=== PATIENT | female | born 1960 | race American Indian/Alaskan Native ===

== ENCOUNTER 2020-04-22 02:10 | Inpatient (IN) | payer OTHER ==
[2020-04-22] MEDS ORDERED: ASPIRIN 325 MG TAB PO ONE (02:33)
[2020-04-22] MEDS ORDERED: dilTIAZem 25 MG/5 ML INJ ONE (03:02)
--- NOTE | 2020-04-22 03:04 | XRay Report ---
CHEST 1 VIEW INDICATION: Chest Pain. COMPARISON: None. FINDINGS: Support devices: None. Heart: Normal. Lungs/Pleura: No acute pulmonary or pleural findings. IMPRESSION: 1. No acute findings. Signer Name: Jassi Ornelas MD Signed: 04/22/2020 3:00 AM Workstation Name: [id number]
[2020-04-22] MEDS ORDERED: SODIUM CHLORIDE 0.9% 1000 ML 1,000 ML IV ONE (03:06)
[2020-04-22] MEDS ORDERED: dilTIAZem 25 MG/5 ML INJ IV ONE (03:06)
--- NOTE | 2020-04-22 03:10 | Emergency Department Report ---
ED Palpitations HPI - General Chief Complaint: Arrhythmia/Palpitations Stated Complaint: RAPID HEART BEAT Time Seen by Provider: 04/22/20 03:05 Source: patient Mode of arrival: Ambulatory Limitations: No Limitations - History of Present Illness Initial Comments: Patient is a 59-year-old female that presents emergency room with complaints of palpitations and rapid heartbeat. Patient states that the symptoms woke her up at 145. Patient denies chest pain or shortness of breath. Patient states his symptoms are worsening. Patient states that he feels like her heart is bouncing around. Patient has a history of a flutter. Patient denies past medical history of diabetes or CHF. Patient states she took an extra dose of Coreg just prior to coming to the hospital. Patient states she did not get any relief from the Coreg. Patient states she has been working outside for the past 2 days. Patient denies recent travel. Patient denies recent international travel. Patient denies exposure to the novel coronavirus. Patient denies sick contacts. Patient denies fever and chills. Patient denies cough. Patient denies diarrhea. Patient denies coming in contact with anybody with symptoms of the novel coronavirus. Patient's EKG read at 0218 and I have requested that the patient be immediately brought back from triage due to the finding of A. fib and tachycardia. MD Complaint: rapid heart beat, "heart racing", palpitations -: Sudden Context: occured during rest Arrythmia History: other Associated Symptoms: denies: chest pain, shortness of breath, syncope, near- syncope, nausea/vomiting, anxiety, diaphoresis, cough, parasthesias, feeling of impending doom, muscle cramps - Related Data Allergies Allergy/AdvReac Type Severity Reaction Status Date / Time ibuprofen Allergy Hives Verified 04/22/20 02:33 levofloxacin [From Levaquin] Allergy Itching Verified 04/22/20 02:33 Penicillins Allergy Hives Verified 04/22/20 02:32 Sulfa (Sulfonamide Allergy Rash Verified 04/22/20 02:32 Antibiotics) ED Review of Systems ROS: Stated complaint: RAPID HEART BEAT Other details as noted in HPI Constitutional: denies: chills, fever Eyes: denies: eye pain, eye discharge, vision change ENT: denies: ear pain, throat pain Respiratory: denies: cough, shortness of breath, wheezing Cardiovascular: palpitations. denies: chest pain Endocrine: no symptoms reported Gastrointestinal: denies: abdominal pain, nausea, diarrhea Genitourinary: denies: urgency, dysuria, discharge Musculoskeletal: denies: back pain, joint swelling, arthralgia Skin: denies: rash, lesions Neurological: denies: headache, weakness, paresthesias Psychiatric: denies: anxiety, depression Hematological/Lymphatic: denies: easy bleeding, easy bruising ED Past Medical Hx - Past Medical History Previous Medical History?: Yes Hx GERD: Yes Additional medical history: A-flutter - Surgical History Past Surgical History?: Yes Additional Surgical History: Breast Biopsies. Hysterectomy - Family History Family history: no significant - Social History Smoking Status: Never Smoker Substance Use Type: None ED Physical Exam - General Limitations: No Limitations General appearance: alert, in no apparent distress - Head Head exam: Present: atraumatic, normocephalic - Eye Eye exam: Present: normal appearance - ENT ENT exam: Present: mucous membranes moist - Neck Neck exam: Present: normal inspection - Respiratory Respiratory exam: Present: normal lung sounds bilaterally. Absent: respiratory distress, wheezes, rales - Cardiovascular Cardiovascular Exam: Present: regular rate, normal rhythm, tachycardia, irregular rhythm. Absent: systolic murmur, diastolic murmur, rubs, gallop - GI/Abdominal GI/Abdominal exam: Present: soft, normal bowel sounds. Absent: distended, tenderness, guarding, rebound - Extremities Exam Extremities exam: Present: normal inspection - Back Exam Back exam: Present: normal inspection - Neurological Exam Neurological exam: Present: alert, oriented X3 - Psychiatric Psychiatric exam: Present: normal affect, normal mood - Skin Skin exam: Present: warm, dry, intact, normal color. Absent: rash ED Course Vital Signs 04/22/20 04/22/20 04/22/20 02:22 03:06 03:15 Temperature 98.1 F Pulse Rate 71 134 H 72 Respiratory 16 16 14 Rate Blood Pressure 132/79 115/73 O2 Sat by Pulse 98 99 97 Oximetry 04/22/20 04/22/20 04/22/20 03:20 03:22 03:30 Temperature Pulse Rate 88 136 H 71 Respiratory 14 Rate Blood Pressure 121/79 O2 Sat by Pulse 97 Oximetry 04/22/20 04/22/20 04/22/20 03:45 04:03 04:15 Temperature Pulse Rate 74 65 Respiratory 16 16 16 Rate Blood Pressure 121/82 121/82 90/59 O2 Sat by Pulse 99 98 Oximetry 04/22/20 04:30 Temperature Pulse Rate Respiratory 17 Rate Blood Pressure 118/78 O2 Sat by Pulse 97 Oximetry - Reevaluation(s) Reevaluation #1: Initial evaluation done. Patient found to have A. fib RVR on engine monitor. Heart rate on the engine monitor is 128-140. Patient will be given Cardizem and placed on a Cardizem drip. Patient also will be given fluids. Patient's labs have been drawn. Patient's labs are pending. 04/22/20 03:08 Reevaluation #2: Patient given Cardizem push and the patient converted back to a flutter. Patient states she is always in atrial flutter. Patient states her symptoms have resolved. Patient was placed on a Cardizem drip. 04/22/20 03:14 Reevaluation #3: Patient has fluid on. Patient on Cardizem drip. Patient states she is feeling better. Patient states she still having occasional palpitation 04/22/20 03:25 Reevaluation #4: I discussed all results with patient. I discussed plan of care with patient. Patient agrees with plan of care and admission. Patient to be admitted to the hospitalist service. 04/22/20 04:06 - Consultations Consultation #1: Hospitalist consulted for admission. Hospitalist to admit patient. 04/22/20 05:59 ED Medical Decision Making - Lab Data Result diagrams: 04/22/20 02:54 04/22/20 02:54 - EKG Data -: EKG Interpreted by Me EKG shows normal: axis, intervals, QRS complexes, ST-T waves Rate: tachycardia - EKG Data Interpretation: other (A. fib RVR) - Radiology Data Radiology results: report reviewed, image reviewed interpreted by me: Chest x-ray: No pneumonia, no pneumothorax, no foreign body, no osseous findings, no acute findings CHEST 1 VIEW INDICATION: Chest Pain. COMPARISON: None. FINDINGS: Support devices: None. Heart: Normal. Lungs/Pleura: No acute pulmonary or pleural findings. IMPRESSION: 1. No acute findings. - Medical Decision Making Patient is a 59-year-old female that presents to the ER for hypertension. Patient symptoms started 1:45 AM. The symptoms awoke the patient. Patient denies chest pain shortness of breath. Patient brought directly to the treatment room from triage after I read the EKG. Patient placed on engine monitor and found to have A. fib RVR. Patient's heart rate was 1 29-1 40. Patient given Cardizem and patient converted to atrial flutter. Patient then placed on a Cardizem drip and patient converted to sinus rhythm. Patient's rate was controlled. Patient labs which were essentially unremarkable. Patient admitted to the hospitalist service for further evaluation treatment. Patient admitted into the ICU. - Differential Diagnosis A. fib, tachycardia, RVR, electrolyte imbalance, dehydration. Critical Care Time: Yes Critical care time in (mins) excluding proc time.: 35 Critical care attestation.: If time is entered above; I have spent that time in minutes in the direct care of this critically ill patient, excluding procedure time. Critical Care Time: 35 minutes ED Disposition Clinical Impression: Atrial fibrillation with RVR, Heart palpitations Disposition: 09 OP ADMIT IP TO THIS HOSP Is pt being admited?: Yes Does the pt Need Aspirin: No Condition: Critical Time of Disposition: 05:54
[2020-04-22 03:17] LABS: Basophils # (Auto) 0.1 K/mm3 (0.0-0.1); Basophils % (Auto) 1.1 % (0.0-1.8); Eosinophils # (Auto) 0.2 K/mm3 (0.0-0.4); Eosinophils % (Auto) 2.9 % (0.0-4.3); Hemoglobin 13.8 gm/dl (10.1-14.3); Lymphocytes # (Auto) 2.7 K/mm3 (1.2-5.4); Lymphocytes % (Auto) 41.7 % (13.4-35.0); Mean Corpuscular HGB Conc 34 % (30-34); Mean Corpuscular Volume 85 fl (79-97); Monocytes # (Auto) 0.6 K/mm3 (0.0-0.8); Monocytes % (Auto) 9.3 % (0.0-7.3); Platelet Count 242 K/mm3 (140-440); Red Blood Count 4.81 M/mm3 (3.65-5.03); Red Cell Distribution Width 13.4 % (13.2-15.2)
[2020-04-22 03:34] LABS: Blood Urea Nitrogen 21 mg/dL (7-17); Calcium 9.4 mg/dL (8.4-10.2); Hemolysis Index 3
[2020-04-22 03:35] LABS: BUN/Creatinine Ratio 30
[2020-04-22] MEDS ORDERED: dilTIAZem/D5W 100 MG/100 ML BAG IV SCH ×2 (04:00→19:00)
--- NOTE | 2020-04-22 09:37 | History and Physical Report ---
History of Present Illness Date of examination: 04/22/20 Date of admission: 04/22/20 06:09 Chief complaint: tachycardia History of present illness: Patient is a 59-year-old female that presents emergency room with complaints of palpitations and rapid heartbeat. Patient states that the symptoms awakened her from sleep at 145a. Patient denies chest pain or shortness of breath. Patient states her symptoms are worsened aprompted her visit to the ER. Patient has a history of a flutter. Patient states she took an extra dose of Coreg just prior to coming to the hospital but no relief of the palpitations. Patient states she has been working outside for the past 2 days. Patient denies recent travel. Patient denies recent international travel. Patient denies exposure to the novel coronavirus. Patient denies sick contacts. Patient denies fever and chills. Patient denies cough. Patient denies diarrhea. Patient denies coming in contact with anybody with symptoms of the novel coronavirus. In the ER, Patient's EKG revealed A. fib/tachycardia. Past History Past Medical History: other (aflutter) Past Surgical History: No surgical history Social history: no significant social history Family history: no significant family history Medications and Allergies Allergies Allergy/AdvReac Type Severity Reaction Status Date / Time ibuprofen Allergy Hives Verified 04/22/20 02:33 levofloxacin [From Levaquin] Allergy Itching Verified 04/22/20 02:33 Penicillins Allergy Hives Verified 04/22/20 02:32 Sulfa (Sulfonamide Allergy Rash Verified 04/22/20 02:32 Antibiotics) Active Meds: Active Medications Diltiazem HCl (Cardizem/D5w 100mg/100ml) 100 mg in 100 mls @ 5 mls/hr IV TITR JAY JAY; Protocol Last Admin: 04/22/20 03:20 Dose: 5 mg/hr, 5 mls/hr Documented by: Review of Systems All systems: negative Exam - Constitutional Vitals: Temp Pulse Resp BP Pulse Ox 98.1 F 67 23 125/76 99 04/22/20 02:22 04/22/20 08:15 04/22/20 08:15 04/22/20 08:15 04/22/20 08:15 General appearance: Present: no acute distress, well-nourished - EENT Eyes: Present: PERRL ENT: hearing intact, clear oral mucosa - Neck Neck: Present: supple, normal ROM - Respiratory Respiratory effort: normal Respiratory: bilateral: CTA - Cardiovascular Heart Sounds: Present: S1 & S2. Absent: rub, click - Extremities Extremities: pulses symmetrical, No edema Peripheral Pulses: within normal limits - Abdominal General gastrointestinal: Present: soft, non-tender, non-distended, normal bowel sounds Female genitourinary: Present: normal - Integumentary Integumentary: Present: clear, warm, dry - Musculoskeletal Musculoskeletal: gait normal, strength equal bilaterally - Psychiatric Psychiatric: appropriate mood/affect, intact judgment & insight - Neurologic Neurologic: CNII-XII intact, moves all extremities HEART Score - HEART Score Troponin: Troponin T < 0.010 ng/mL (0.00-0.029) 04/22/20 08:13 Results - Labs CBC & Chem 7: 04/22/20 02:54 04/22/20 02:54 Labs: Laboratory Last Values WBC 6.4 K/mm3 (4.5-11.0) 04/22/20 02:54 RBC 4.81 M/mm3 (3.65-5.03) 04/22/20 02:54 Hgb 13.8 gm/dl (10.1-14.3) 04/22/20 02:54 Hct 41.0 % (30.3-42.9) 04/22/20 02:54 MCV 85 fl (79-97) 04/22/20 02:54 MCH 29 pg (28-32) 04/22/20 02:54 MCHC 34 % (30-34) 04/22/20 02:54 RDW 13.4 % (13.2-15.2) 04/22/20 02:54 Plt Count 242 K/mm3 (140-440) 04/22/20 02:54 Lymph % (Auto) 41.7 % (13.4-35.0) H 04/22/20 02:54 [place] % (Auto) 9.3 % (0.0-7.3) H 04/22/20 02:54 Eos % (Auto) 2.9 % (0.0-4.3) 04/22/20 02:54 Baso % (Auto) 1.1 % (0.0-1.8) 04/22/20 02:54 Lymph # (Auto) 2.7 K/mm3 (1.2-5.4) 04/22/20 02:54 [place] # (Auto) 0.6 K/mm3 (0.0-0.8) 04/22/20 02:54 Eos # (Auto) 0.2 K/mm3 (0.0-0.4) 04/22/20 02:54 Baso # (Auto) 0.1 K/mm3 (0.0-0.1) 04/22/20 02:54 Seg Neutrophils % 45.0 % (40.0-70.0) 04/22/20 02:54 Seg Neutrophils # 2.9 K/mm3 (1.8-7.7) 04/22/20 02:54 Sodium 141 mmol/L (137-145) 04/22/20 02:54 Potassium 3.8 mmol/L (3.6-5.0) 04/22/20 02:54 Chloride 102.2 mmol/L (98-107) 04/22/20 02:54 Carbon Dioxide 25 mmol/L (22-30) 04/22/20 02:54 Anion Gap 18 mmol/L 04/22/20 02:54 BUN 21 mg/dL (7-17) H 04/22/20 02:54 Creatinine 0.7 mg/dL (0.6-1.2) 04/22/20 02:54 Estimated GFR > 60 ml/min 04/22/20 02:54 BUN/Creatinine Ratio 30 % 04/22/20 02:54 Glucose 106 mg/dL (65-100) H 04/22/20 02:54 Calcium 9.4 mg/dL (8.4-10.2) 04/22/20 02:54 Troponin T < 0.010 ng/mL (0.00-0.029) 04/22/20 08:13 TSH 2.230 mlU/mL (0.270-4.200) 04/22/20 05:15 Peters/IV: IV Catheter Type [Left Forearm Peripheral IV ] Assessment and Plan Assessment and plan: Afib with RVR. Cont. Cardizem drip. Cardiology consult. TSH nl. Serial EKG. F/U D-dimer. Consider CTA
[2020-04-22] MEDS ORDERED: ENOXAPARIN 40 MG/0.4 ML INJ SUB-Q ONE (11:56)
[2020-04-22] MEDS: ENOXAPARIN 40 MG/0.4 ML INJ SUB-Q SCH (11:59)
--- NOTE | 2020-04-22 13:32 | Consultation ---
History of Present Illness Consult date: 04/22/20 Requesting physician: BUFFY DE LA CRUZ Consult reason: atrial fibrillation History of present illness: The patient is a 59-year-old female with a past medical history of paroxysmal atrial flutter. She reports she is regularly followed by a health assessment and treatment teacher in [place], [place]. She presented with c/o palpitations which awoke her from sleep today around 1:45AM. Her home medication regimen includes ASA 81 and Coreg 3.125mg BID. At the onset of her palpitations, she took an additional Coreg but did not experience any relief and thus she decided to seek medical attention. Pt denies any chest pain, SOB, n/v, diaphoresis, dizziness or syncope. She reports that her mother has been sick for about 2 weeks and she has been under increased amount of stress due to taking care of her mother. Admission ECG shows atrial fibrillation with HR 120. She was given IV cardizem and placed on cardizem gtt and has since converted to NSR. She denies any current complaints on evaluation. Pt reports that she underwent stress testing with her primary health assessment and treatment teacher in December 2019 and this test was normal to her knowledge. No other significant past medical history. Past History Past Medical History: other (aflutter) Past Surgical History: No surgical history Social history: no significant social history. denies: smoking, alcohol abuse, prescription drug abuse Family history: no significant family history Medications and Allergies Allergies Allergy/AdvReac Type Severity Reaction Status Date / Time ibuprofen Allergy Hives Verified 04/22/20 02:33 levofloxacin [From Levaquin] Allergy Itching Verified 04/22/20 02:33 Penicillins Allergy Hives Verified 04/22/20 02:32 Sulfa (Sulfonamide Allergy Rash Verified 04/22/20 02:32 Antibiotics) Active Meds: Active Medications Enoxaparin Sodium (Enoxaparin) 40 mg SUB-Q QDAY [facility] Last Admin: 04/22/20 11:59 Dose: 40 mg Documented by: Diltiazem HCl (Cardizem/D5w 100mg/100ml) 100 mg in 100 mls @ 5 mls/hr IV TITR JAY JAY; Protocol Last Admin: 04/22/20 03:20 Dose: 5 mg/hr, 5 mls/hr Documented by: Sodium Chloride (Sodium Chloride Flush Syringe 10 Ml) 10 ml IV BID JAY JAY Last Admin: 04/22/20 11:40 Dose: 10 ml Documented by: Sodium Chloride (Sodium Chloride Flush Syringe 10 Ml) 10 ml IV PRN PRN PRN Reason: LINE FLUSH Review of Systems Constitutional: no weight loss, no weight gain, no fever, no chills, no sweats Ears, nose, mouth and throat: no ear pain, no nose pain, no sinus pressure, no sinus pain Cardiovascular: palpitations, rapid/irregular heart beat, no chest pain, no orthopnea, no edema, no syncope, no lightheadedness, no shortness of breath, no dyspnea on exertion, no high blood pressure, no leg edema, no decreased exercise tolerance Respiratory: no cough, no shortness of breath, no dyspnea on exertion, no congestion, no wheezing, no pain on inspiration Gastrointestinal: no abdominal pain, no nausea, no vomiting, no diarrhea, no constipation, no change in bowel habits Genitourinary Female: no pelvic pain, no flank pain, no dysuria, no urinary frequency, no urgency Musculoskeletal: no neck stiffness, no neck pain, no shooting arm pain, no arm numbness/tingling, no low back pain, no shooting leg pain Integumentary: no rash, no pruritis, no redness, no sores, no wounds Neurological: no head injury, no paralysis, no weakness, no parathesias, no numbness, no tingling, no seizures, no syncope Psychiatric: no anxiety Endocrine: no cold intolerance, no heat intolerance Hematologic/Lymphatic: no easy bruising, no easy bleeding Allergic/Immunologic: no urticaria Physical Examination Vital Signs Temp Pulse Resp BP Pulse Ox 98.1 F 71 16 132/79 98 04/22/20 02:22 04/22/20 02:22 04/22/20 02:22 04/22/20 02:22 04/22/20 02:22 General appearance: no acute distress HEENT: Positive: PERRL, Normocephaly, Mucus Membranes Moist Neck: Positive: neck supple, trachea midline Cardiac: Positive: Reg Rate and Rhythm, S1/S2 Lungs: Positive: Decreased Breath Sounds Neuro: Positive: Grossly Intact Abdomen: Negative: Tender Skin: Negative: Rash Musculoskeletal: No Pain Extremities: Absent: edema Results 04/22/20 02:54 04/22/20 02:54 CBC 04/22/20 Range/Units 02:54 WBC 6.4 (4.5-11.0) K/mm3 RBC 4.81 (3.65-5.03) M/mm3 Hgb 13.8 (10.1-14.3) gm/dl Hct 41.0 (30.3-42.9) % Plt Count 242 (140-440) K/mm3 Lymph # (Auto) 2.7 (1.2-5.4) K/mm3 [place] # (Auto) 0.6 (0.0-0.8) K/mm3 Eos # (Auto) 0.2 (0.0-0.4) K/mm3 Baso # (Auto) 0.1 (0.0-0.1) K/mm3 Comprehensive Metabolic Panel 04/22/20 Range/Units 02:54 Sodium 141 (137-145) mmol/L Potassium 3.8 (3.6-5.0) mmol/L Chloride 102.2 (98-107) mmol/L Carbon Dioxide 25 (22-30) mmol/L BUN 21 H (7-17) mg/dL Creatinine 0.7 (0.6-1.2) mg/dL Glucose 106 H (65-100) mg/dL Calcium 9.4 (8.4-10.2) mg/dL - Imaging and Cardiology Echo: pending EKG: report reviewed, image reviewed EKG interpretations - Telemetry EKG Rhythm: Sinus Rhythm - EKG Supraventricular dysrhythmia: atrial fibrillation Assessment and Plan Optimize HR control - convert home Coreg to lopressor. Obtain echo. Pt with current CHADS2 VASC score of 1 (female) and thus no indication for initiation of systemic AC at this time - cont home ASA 81mg daily. Cont to monitor on telemetry overnight, if no acute events overnight anticipate d/c in AM. Will follow. The patient has been seen in conjunction with Dr. Ezra Morel who agrees with the assessment and plan of care. - Patient Problems (1) Atrial fibrillation with RVR Current Visit: Yes Status: Acute Plan to address problem: parox AFib and AFlutter --> NSR
[2020-04-22] MEDS ORDERED: ACETAMINOPHEN 325 MG TAB ONE ×2 (14:39→16:16)
[2020-04-22] MEDS ORDERED: ACETAMINOPHEN 325 MG TAB PO ONE (16:22)
[2020-04-22] MEDS ORDERED: MORPHINE 2 MG/1 ML INJ IV ONE (23:36)
[2020-04-22] MEDS: METOPROLOL TARTRATE 25 MG TAB PO SCH (23:37)
[2020-04-22] MEDS ORDERED: MORPHINE 2 MG/1 ML INJ ONE (23:44)
[2020-04-23 06:51] LABS: Hematocrit 39.7 % (30.3-42.9); Hemoglobin 13.1 gm/dl (10.1-14.3); Mean Corpuscular HGB Conc 33 % (30-34); Mean Corpuscular Volume 85 fl (79-97); Platelet Count 225 K/mm3 (140-440); Red Blood Count 4.67 M/mm3 (3.65-5.03); Red Cell Distribution Width 13.6 % (13.2-15.2)
[2020-04-23 07:00] LABS: BUN/Creatinine Ratio 25; Blood Urea Nitrogen 15 mg/dL (7-17); Calcium 8.8 mg/dL (8.4-10.2); Hemolysis Index 12
--- NOTE | 2020-04-23 09:46 | Progress Note ---
Assessment and Plan Assessment and plan: Afib with RVR. Continue Cardizem drip per cardiology recommendations. Obtain echocardiogram results. Pt with current CHADS2 VASC score of 1 (female) and thus no indication for initiation of systemic AC at this time - cont home ASA 81mg daily. Anticipate discharge later today or in a.m. History Interval history: No new issues overnight. Patient denies any chest pain or shortness of breath. Hospitalist Physical - Constitutional Vitals: Temp Pulse Resp BP Pulse Ox 97.7 F 58 L 17 98/60 98 04/23/20 03:56 04/23/20 03:56 04/23/20 03:56 04/23/20 03:56 04/23/20 03:56 General appearance: Present: no acute distress - EENT Eyes: Present: PERRL, EOM intact ENT: hearing intact, clear oral mucosa, dentition normal - Neck Neck: Present: supple, normal ROM - Respiratory Respiratory effort: normal Respiratory: bilateral: CTA - Cardiovascular Rhythm: regular Heart Sounds: Present: S1 & S2. Absent: gallop, rub - Extremities Extremities: no ischemia, No edema, Full ROM - Abdominal General gastrointestinal: soft, non-tender, non-distended, normal bowel sounds - Integumentary Integumentary: Present: clear, warm, dry - Neurologic Neurologic: CNII-XII intact, moves all extremities HEART Score - HEART Score Troponin: Troponin T < 0.010 ng/mL (0.00-0.029) 04/22/20 08:13 Results - Labs CBC & Chem 7: 04/23/20 06:20 04/23/20 06:20 Labs: Laboratory Last Values WBC 4.7 K/mm3 (4.5-11.0) 04/23/20 06:20 RBC 4.67 M/mm3 (3.65-5.03) 04/23/20 06:20 Hgb 13.1 gm/dl (10.1-14.3) 04/23/20 06:20 Hct 39.7 % (30.3-42.9) 04/23/20 06:20 MCV 85 fl (79-97) 04/23/20 06:20 MCH 28 pg (28-32) 04/23/20 06:20 MCHC 33 % (30-34) 04/23/20 06:20 RDW 13.6 % (13.2-15.2) 04/23/20 06:20 Plt Count 225 K/mm3 (140-440) 04/23/20 06:20 Lymph % (Auto) 41.7 % (13.4-35.0) H 04/22/20 02:54 [place] % (Auto) 9.3 % (0.0-7.3) H 04/22/20 02:54 Eos % (Auto) 2.9 % (0.0-4.3) 04/22/20 02:54 Baso % (Auto) 1.1 % (0.0-1.8) 04/22/20 02:54 Lymph # (Auto) 2.7 K/mm3 (1.2-5.4) 04/22/20 02:54 [place] # (Auto) 0.6 K/mm3 (0.0-0.8) 04/22/20 02:54 Eos # (Auto) 0.2 K/mm3 (0.0-0.4) 04/22/20 02:54 Baso # (Auto) 0.1 K/mm3 (0.0-0.1) 04/22/20 02:54 Seg Neutrophils % Resaw Operator 04/23/20 06:20 Seg Neutrophils # 2.9 K/mm3 (1.8-7.7) 04/22/20 02:54 D-Dimer < 135.00 ng/mlDDU (0-234) 04/22/20 10:01 Sodium 142 mmol/L (137-145) 04/23/20 06:20 Potassium 3.9 mmol/L (3.6-5.0) 04/23/20 06:20 Chloride 102.4 mmol/L (98-107) 04/23/20 06:20 Carbon Dioxide 29 mmol/L (22-30) 04/23/20 06:20 Anion Gap 15 mmol/L 04/23/20 06:20 BUN 15 mg/dL (7-17) 04/23/20 06:20 Creatinine 0.6 mg/dL (0.6-1.2) 04/23/20 06:20 Estimated GFR > 60 ml/min 04/23/20 06:20 BUN/Creatinine Ratio 25 % 04/23/20 06:20 Glucose 99 mg/dL (65-100) 04/23/20 06:20 Calcium 8.8 mg/dL (8.4-10.2) 04/23/20 06:20 Troponin T < 0.010 ng/mL (0.00-0.029) 04/22/20 08:13 TSH 2.230 mlU/mL (0.270-4.200) 04/22/20 05:15 Peters/IV: Voiding Method Toilet IV Catheter Type [Left Forearm Peripheral IV ] Active Medications - Current Medications Current Medications: Generic Name Dose Route Start Last Admin Trade Name Freq PRN Reason Stop Dose Admin Aspirin 81 mg 04/23/20 10:00 Baby Aspirin PO QDAY [facility] Enoxaparin Sodium 40 mg 04/22/20 10:00 04/22/20 11:59 Enoxaparin SUB-Q 40 mg QDAY JAY JAY Administration Diltiazem HCl 100 mg in 100 mls @ 5 mls/hr 04/22/20 19:00 04/22/20 21:00 Cardizem/D5w 100mg/100ml IV 5 mg/hr TITR JAY JAY 5 mls/hr Administration Protocol 5 MG/HR Metoprolol Tartrate 25 mg 04/22/20 22:00 04/22/20 23:37 Metoprolol PO Not Given BID [facility] Pneumococcal Polyvalent Vaccine 0.5 ml 04/23/20 12:00 Pneumovax 23 IM 04/23/20 12:01 .ONCE ONE Sodium Chloride 10 ml 04/22/20 10:00 04/22/20 23:28 Sodium Chloride Flush Syringe 10 Ml IV 10 ml BID JAY JAY Administration Sodium Chloride 10 ml 04/22/20 09:57 Sodium Chloride Flush Syringe 10 Ml IV PRN PRN LINE FLUSH
[2020-04-23 10:23] LABS: Basophils % (Manual) 0 % (0.0-1.8); Total Cells Counted 100
[2020-04-23 10:24] LABS: Platelet Estimate Consistent w Auto; RBC Morphology Normal
[2020-04-23] MEDS: ASPIRIN 81 MG TAB CHEW PO SCH (11:28)
[2020-04-23] MEDS: METOPROLOL TARTRATE 25 MG TAB PO SCH ×2 (11:28→21:22)
[2020-04-23] MEDS: ENOXAPARIN 40 MG/0.4 ML INJ SUB-Q SCH (11:28)
[2020-04-23] MEDS ORDERED: ACETAMINOPHEN 325 MG TAB PO PRN (11:36)
[2020-04-23] MEDS ORDERED: PNEUMOCOCCAL 23 Valent 0.5 ML VIAL IM ONE (12:00)
[2020-04-23] MEDS: CETIRIZINE 10 MG TAB PO SCH (12:50)
--- NOTE | 2020-04-23 15:47 | Progress Note ---
Assessment and Plan Echo pending. May obtain as an outpatient. No indications for OAC at this time. Cont present cardiac mgmt. Currently stable cardiac status. Pt may be discharged from a Cardiology perspective. Plan for outpatient echo. Recommend follow-up with Primary Client Relations Associate within 1-2 weeks ([phone]). Pt seen in conjunction with Dr. Edmonds, who agrees with the assessment and plan of care. - Patient Problems (1) Atrial fibrillation with RVR Current Visit: Yes Status: Acute Plan to address problem: PAF/Flutter -> NSR Subjective Date of service: 04/23/20 Principal diagnosis: AF/Flutter Interval history: Pt resting comfortably in bed upon exam. She denies any palpitations overnight or this AM. No additional cardiac complaints. Tele reviewed - SR w/no further episodes of AF/Flutter. Objective Last Vital Signs Temp 98.8 F 04/23/20 12:33 Pulse 64 04/23/20 12:33 Resp 16 04/23/20 12:33 BP 103/60 04/23/20 12:33 Pulse Ox 96 04/23/20 12:33 - Physical Examination General: No Apparent Distress HEENT: Positive: EOMI, Normocephaly, Mucus Membranes Moist Neck: Positive: neck supple, trachea midline. Negative: JVD/HJR Cardiac: Positive: Reg Rate and Rhythm, S1/S2 Lungs: Positive: clear to auscultation Neuro: Positive: Grossly Intact Abdomen: Positive: Soft, Active Bowel Sounds. Negative: Tender Skin: Negative: Rash Musculoskeletal: No Pain Extremities: Present: upper extr. pulses, lower extr. pulses. Absent: edema - Labs and Meds CBC 04/23/20 Range/Units 06:20 WBC 4.7 (4.5-11.0) K/mm3 RBC 4.67 (3.65-5.03) M/mm3 Hgb 13.1 (10.1-14.3) gm/dl Hct 39.7 (30.3-42.9) % Plt Count 225 (140-440) K/mm3 Comprehensive Metabolic Panel 04/23/20 Range/Units 06:20 Sodium 142 (137-145) mmol/L Potassium 3.9 (3.6-5.0) mmol/L Chloride 102.4 (98-107) mmol/L Carbon Dioxide 29 (22-30) mmol/L BUN 15 (7-17) mg/dL Creatinine 0.6 (0.6-1.2) mg/dL Glucose 99 (65-100) mg/dL Calcium 8.8 (8.4-10.2) mg/dL - Imaging and Cardiology EKG: report reviewed, image reviewed Echo: pending - Telemetry EKG Rhythm: Sinus Rhythm - EKG Sinus rhythms and dysrhythmias: sinus rhythm
--- NOTE | 2020-04-24 09:35 | Discharge Summary ---
Providers - Providers Date of Admission: 04/22/20 06:09 Date of discharge: 04/24/20 Attending physician: BUFFY DE LA CRUZ 04/22/20 09:57 Consult to Physician [CONS] Routine Comment: Consulting Provider: MARTY BORJA Physician Instructions: Reason For Exam: afib rvr Primary care physician: HAM MARKER Hospitalization Reason for admission: aflutter/afib Condition: Critical Hospital course: The patient is a 59-year-old female with a past medical history of paroxysmal atrial flutter who presented with c/o palpitations which awoke her from sleep today around 1:45AM [employer]. Her home medication regimen includes ASA 81 and Coreg 3.125mg BID. At the onset of her palpitations, she took an additional Coreg but did not experience any relief and thus she decided to seek medical attention. Admission ECG showed atrial fibrillation with HR 120. She was given IV cardizem and placed on cardizem gtt and converted to NSR. Pt reports that she underwent stress testing with her primary shear scrapman in December 2019 and this test was normal to her knowledge. No other significant past medical history. The patient was admitted with diagnosis of atrial fibrillation with RVR and seen by cardiology in consultation. Cardiology felt the patient had current CHADS2 VASC score of 1 (female) and thus no indication for initiation of systemic AC at this time. Cardiology adjusted medications and changed to Coreg to Lopressor 25 mg p.o. twice daily. Cardiology felt that the echocardiogram could be done as an outpatient. Cardiology felt patient could be discharged home. Dedicated discharge time 35 minutes Disposition: [id number] TO HOME OR SELFCARE Time spent for discharge: 35 - Discharge Diagnoses (1) Atrial fibrillation with RVR Status: Acute (2) Heart palpitations Status: Acute Core Measure Documentation - Palliative Care Palliative Care/ Comfort Measures: Not Applicable - Core Measures Any of the following diagnoses?: none Exam - Constitutional Vitals: Temp Pulse Resp BP Pulse Ox 98.2 F 63 18 108/61 95 04/24/20 07:47 04/24/20 07:47 04/24/20 07:47 04/24/20 07:47 04/24/20 07:47 General appearance: Present: no acute distress, well-nourished - EENT Eyes: Present: PERRL ENT: hearing intact, clear oral mucosa - Neck Neck: Present: supple, normal ROM - Respiratory Respiratory effort: normal Respiratory: bilateral: CTA - Cardiovascular Heart Sounds: Present: S1 & S2. Absent: rub, click - Extremities Extremities: pulses symmetrical, No edema Peripheral Pulses: within normal limits - Abdominal General gastrointestinal: Present: soft, non-tender, non-distended, normal bowel sounds Female genitourinary: Present: normal - Integumentary Integumentary: Present: clear, warm, dry - Musculoskeletal Musculoskeletal: gait normal, strength equal bilaterally - Psychiatric Psychiatric: appropriate mood/affect, intact judgment & insight - Neurologic Neurologic: CNII-XII intact, moves all extremities Plan Activity: advance as tolerated Weight Bearing Status: Weight Bear as Tolerated Diet: regular Follow up with: PRIMARY CARE, [Primary Care Provider] - 7 Days Prescriptions: Aspirin [Aspirin BABY CHEW TAB] 81 mg PO QDAY #30 tab.chew Metoprolol [Lopressor TAB] 25 mg PO BID #60 tablet Pantoprazole [Protonix TAB] 40 mg PO QDAY #30 Cetirizine HCl [Zyrtec 10mg tab] 10 mg PO DAILY #30
[2020-04-24] MEDS: ASPIRIN 81 MG TAB CHEW PO SCH (10:22)
[2020-04-24] MEDS: METOPROLOL TARTRATE 25 MG TAB PO SCH (10:22)
[2020-04-24] MEDS: CETIRIZINE 10 MG TAB PO SCH (10:22)
[2020-04-24] MEDS: ENOXAPARIN 40 MG/0.4 ML INJ SUB-Q SCH (10:22)
[2020-04-24 11:26] VITALS: BP 120/71
== END 2020-04-24 15:50 | disposition home or self-care (01) | DRG 310 ==
LOC: ED 02:10 → CC1 06:09 → 4A 21:05
PROVIDERS: ADMIT Internal Medicine Geriatric Medicine; ATTEND Hospitalist
DX: I48.91 Unspecified atrial fibrillation (principal); Z88.0 Allergy status to penicillin; Z88.8 Allergy status to other drugs, medicaments and biological substances; Z88.2 Allergy status to sulfonamides; K21.9 Gastro-esophageal reflux disease without esophagitis; Z90.710 Acquired absence of both cervix and uterus
CPT/HCPCS: 36415; 71045; 80048; 84443; 84484; 85007; 85025; 85379; 87641; 90732; 93005; 93306; G0378; J1650; J2270; J7030